=== PATIENT | male | born 1960 | race Caucasian/White ===

== ENCOUNTER 2020-09-02 16:19 | Emergency (ER) | payer OTHER, MEDICAID, SELFPAY ==
[2020-09-02 16:25] VITALS: BP 202/105; PULSE 89; RESP 18; O2SAT 98; BMI 30.4
[2020-09-02 16:32] VITALS: PULSE 89; RESP 22; O2SAT 99
--- NOTE | 2020-09-02 16:46 | DI.RAD.S_ITS ---
PROCEDURE: XR CHEST 1V INDICATIONS: rt chest pain TECHNIQUE: One view of the chest was acquired. COMPARISON: [facility], CR, XR CHEST 1 VIEW, 08/13/2020, 2:48. FINDINGS: Surgical changes and devices: None. Lungs and pleura: Lungs are clear. No pleural effusions or pneumothorax. Mediastinum: Mediastinal contours appear normal. Heart size is normal. Bones and chest wall: No suspicious bony lesions. No focal right rib abnormality can be seen. Overlying soft tissues appear unremarkable. IMPRESSION: Portable chest within normal limits. Dictated by: James Mccarthy M.D. on 09/02/2020 at 16:07 Approved by: James Mccarthy M.D. on 09/02/2020 at 16:07
--- NOTE | 2020-09-02 16:48 | ED.GENADULT ---
HPI - General Adult General Chief complaint: Extremity Injury, Upper Stated complaint: right arm sore, right chest pain Time Seen by Provider: 09/02/20 16:29 Source: patient Mode of arrival: Ambulatory Limitations: no limitations History of Present Illness HPI narrative: Patient here with ira. Complains a reproducible right arm and right chest and right scapular pain. Blood pressure noted. Has not seen a physician over 1 year. He no longer sees his primary care. Was being prescribed pain medication by primary care. No history of high blood pressure. Denies any injury. Patient states he has a very bad back/spine. Two thousand eight lumbar surgery in [place]. Since then has had problems with his back. Pain is very positional. Prefers to lay on his left side. To take the pressure off the pain on the right side. No syncope. No abdominal pain. No numbness tingling or weakness. No diaphoresis. Right pectoral chest pain worse with raising his right hand above his head and to the back. He has been doing that repetitive late to help stretch out his right scapular back pain He states he did in doing that in order to give relief to his right scapular muscle spasm/pain. No exertional chest pain or dyspnea. Related Data Previous Rx's Medication Instructions Recorded hydrocodone-acetaminophen 1 tab PO Q6H PRN #7 tab 09/02/20 ondansetron 4 mg PO Q8H PRN #10 tab 09/02/20 Allergies Allergy/AdvReac Type Severity Reaction Status Date / Time No Known Drug Allergies Allergy Verified 09/02/20 16:33 Review of Systems Review of Systems Narrative: GENERAL: Denies chills, fatigue, malaise, fever, sweats. HEENT: Denies sinus pain, ear pain, sore throat RESPIRATORY: Denies dyspnea, cough CARDIOVASCULAR: Complains chest pain, denies palpitations GASTROINTESTINAL: Denies nausea, vomiting, abdominal pain : Denies dysuria, frequency, hematuria MUSCULOSKELETAL: Complains muscle denies bony pain SKIN: Denies rash, skin lesions NEUROLOGIC: Denies weakness, numbness ROS Unobtainable: All systems reviewed & are unremarkable except as noted in HPI and below Patient History Social History Smoking Status: Current every day smoker Smoking Status: Current every day smoker tobacco type: cigarettes alcohol intake frequency: holidays/special occasions only Substance Use Type: does not use Exam Narrative Exam Narrative: GENERAL: in no distress, not toxic not dyspneic HEAD: Normocephalic. EYES: Pupils equal round No scleral icterus. No injection no discharge ENT: Mucous membranes moist. NECK: Trachea midline. CARDIOVASCULAR: Regular rate and rhythm without murmurs, reproducible right pectoral muscle pain/tenderness with elevating right arm and hand above his head and extending to his back with his hand RESPIRATORY: Clear to auscultation. Breath sounds equal bilaterally. No wheezes, rales, or rhonchi. GASTROINTESTINAL: Abdomen soft, non-tender EXTREMITIES: No gross deformities. Nontender right shoulder elbow and wrist. Strong senior product engineer. Light touch intact to right hand and fingers. BACK: Reproducible in for scapular and suprascapular muscle tenderness and spasm on the right side. NEURO: AOx4. SKIN: Warm and dry PSYCH: Not anxious, is cooperative Initial Vital Signs Initial Vital Signs: Vital Signs Pulse Rate 89 09/02/20 16:25 Respiratory Rate 18 09/02/20 16:25 Blood Pressure 202/105 H 09/02/20 16:25 Pulse Oximetry 98 09/02/20 16:25 Course Course Course Narrative: No new issues during course of stay. Orders Ordered: ED Orders 09/02/20 16:36 Complete Blood Count AUTO DIFF Stat Comprehensive Metabolic Panel Stat Troponin & CK Cardiac Panel Stat 09/02/20 16:46 XR chest 1V Stat EKG-12 Lead Stat Discontinued Medications Aspirin (Aspirin 81 Mg Chew Tab) 324 mg PO NOW ONE Stop: 09/02/20 16:47 Last Admin: 09/02/20 17:00 Dose: 324 mg Documented by: GURWINDER Morphine Sulfate (Morphine 4 Mg/Ml Inj) 4 mg IV NOW ONE Stop: 09/02/20 16:47 Last Admin: 09/02/20 17:00 Dose: 4 mg Documented by: GURWINDER Ondansetron HCl (Ondansetron 4 Mg/2 Ml Inj) 4 mg IV NOW ONE Stop: 09/02/20 16:47 Last Admin: 09/02/20 17:00 Dose: 4 mg Documented by: GURWINDER Reevaluation(s) Reevaluation #1: Patient states pain much better. Blood pressure is improved as well. Patient and fiancee desire discharge home. Primary care referral will be given to patient. Blood pressure 156/79. Patient states pain is gone. No dyspnea Time: 17:49 Vital Signs Vital signs: Vital Signs - 8 hr 09/02/20 16:25 09/02/20 16:32 09/02/20 17:00 Pulse Rate 89 89 85 Respiratory Rate 18 22 16 Blood Pressure 202/105 H 176/83 H Pulse Oximetry 98 99 96 09/02/20 17:30 Pulse Rate 83 Respiratory Rate 18 Blood Pressure 156/79 H Pulse Oximetry Medical Decision Making Differential Diagnosis Differential Diagnosis: Thoracic radiculopathy/right pectoral muscle strain Lab Data Lab results reviewed: Yes I reviewed the patient's lab results. Result diagrams: 09/02/20 16:36 09/02/20 16:36 Labs: Lab Results 09/02/20 09/02/20 Range/Units 16:36 16:36 WBC 7.6 (4.5-11.0) X10^3/uL RBC 4.80 (4.5-5.9) X10^6/uL Hgb 13.1 L (13.5-17.5) g/dL Hct 39.0 L (41-53) % MCV 81.3 (80-100) fL MCH 27.4 (26-34) PG MCHC 33.7 (30-36) % RDW 14.7 (11.6-14.8) % Plt Count 184 (150-400) X10^3/uL Neut % (Auto) 71.0 (50-75) % Lymph % (Auto) 18.5 L (25-40) % Mineral % (Auto) 8.1 (3-14) % Eos % (Auto) 1.8 L (2-4) % Baso % (Auto) 0.6 (0-2) % Neut # (Auto) 5400 (3026-5695) /uL Lymph # (Auto) 1400 (2618-6910) /uL Mineral # (Auto) 600 (0-900) /uL Eos # (Auto) 100 (0-450) /uL Baso # (Auto) 0 (0-100) /uL Sodium 135 L (137-145) mmol/L Potassium 5.0 (3.4-5.1) mmol/L Chloride 102 (98-107) mmol/L Carbon Dioxide 28 (22-32) mmol/L BUN 20 (9-20) mg/dL Creatinine 0.83 (0.66-1.25) mg/dL Estimated GFR > 60.0 (>60) mL/min BUN/Creatinine Ratio 24.1 H (6-22) Glucose 153 H (70-100) mg/dL Calcium 9.1 (8.4-10.2) mg/dL Total Bilirubin 0.6 (0.2-1.3) mg/dL AST 58 (17-59) IU/L ALT 34 (<50) IU/L Alkaline Phosphatase 90 (38-126) U/L Total Creatine Kinase 192 H (55-170) U/L CK-MB (CK-2) 4.10 H (<2.37) ng/mL CK-MB (CK-2) Rel Index 2.1 (1.5-5.0) % Troponin I < 0.012 (0.01-0.034) ng/mL Total Protein 8.3 H (6.3-8.2) g/dL Albumin 4.4 (3.5-5.0) g/dL Globulin 3.9 (1.7-4.1) g/dL Albumin/Globulin Ratio 1.1 (1.0-2.8) Imaging Data Chest x-ray: Radiologist's Impression: [address] [id number] ReportSigned Patient: Edson Brady RMR#: [id number]: 1960cct:[id number]/Sex: 60 / MDate of Service: 09/02/20Loc: EDAccession Number: [id number] Procedure: XR chest 1V Ordering Provider: Obed Vargas MD PROCEDURE: XR CHEST 1V INDICATIONS: rt chest pain TECHNIQUE: One view of the chest was acquired. COMPARISON: [facility], , XR CHEST 1 VIEW, 08/13/2020, 2:48. FINDINGS: Surgical changes and devices: None. Lungs and pleura: Lungs are clear. No pleural effusions or pneumothorax. Mediastinum: Mediastinal contours appear normal. Heart size is normal. Bones and chest wall: No suspicious bony lesions. No focal right rib abnormality can be seen. Overlying soft tissues appear unremarkable. IMPRESSION: Portable chest within normal limits. Dictated by: James Mccarthy M.D. on 09/02/2020 at 16:07 Approved by: James Mccarthy M.D. on 09/02/2020 at 16:07 ECG Data Attestation: I personally reviewed and interpreted this ECG as follows: Interpretation: Normal sinus rhythm rate [address] elevation or depression MDM Narrative Medical decision making narrative: Appropriate for discharge home. Has reproducible right arm/scapular and right pectoral muscle/chest pain. This is positional and on movement. No repeat imaging or enzymes indicated. Blood pressure did improve. Likely thoracic radiculopathy/pinched nerve on the right thoracic spine/vertebrae causing right scapular muscle spasm inducing patient to move his arm to for relief on the right side however stretching out his right pectoral muscle Discharge Plan Departure Patient Disposition: Home Clinical Impression: Spasm of thoracic back muscle Chest wall muscle strain Qualifiers: Encounter type: initial encounter Qualified Code(s): S29.011A - Strain of muscle and tendon of front wall of thorax, initial encounter Instructions: DI for Muscle Strain, DI for Muscle Spasm Activity Restrictions/Additional Instructions: No driving or operating machinery tonight. Call provided referral number/list to attain new primary care physician. Return if worse or for any questions or concerns. Be sure to have your blood pressure rechecked when you see your new doctor. Prescriptions: New hydrocodone-acetaminophen 5-325 mg tablet 1 tab PO Q6H PRN (Reason: pain) Qty: 7 RF: 0 ondansetron 4 mg tablet,disintegrating 4 mg PO Q8H PRN (Reason: nausea and vomiting) Qty: 10 RF: 0
[2020-09-02 17:00] VITALS: BP 176/83; PULSE 85; RESP 16; O2SAT 96
[2020-09-02 17:00] LABS: Add Manual Diff / Slide Review NO; Basophils Absolute Auto 0 /uL (0-100); Basophils Percent Auto 0.6 % (0-2); Eosinophils Absolute Auto 100 /uL (0-450); Eosinophils Percent Auto 1.8 % (2-4); Hemoglobin 13.1 g/dL (13.5-17.5); Lymphocytes Absolute Auto 1400 /uL (1100-4500); Lymphocytes Percent Auto 18.5 % (25-40); Mean Corpuscular HGB Conc 33.7 % (30-36); Mean Corpuscular Hemoglobin 27.4 PG (26-34); Mean Corpuscular Volume 81.3 fL (80-100); Monocytes Absolute Auto 600 /uL (0-900); Monocytes Percent Auto 8.1 % (3-14); Neutrophils Absolute Auto 5400 /uL (1500-7000); Platelet Count 184 X10^3/uL (150-400); Red Cell Distribution Width 14.7 % (11.6-14.8); White Blood Cell Count 7.6 X10^3/uL (4.5-11.0)
[2020-09-02] MEDS: MORPHINE 4 MG/ML INJ IV (17:00)
[2020-09-02] MEDS: ASPIRIN 81 MG CHEW TAB 324 MG PO (17:00)
[2020-09-02] MEDS: ONDANSETRON 4 MG/2 ML INJ IV (17:00)
[2020-09-02 17:04] LABS: Alanine Aminotransferase 34 IU/L (<50); Albumin 4.4 g/dL (3.5-5.0); Albumin Globulin Ratio 1.1 (1.0-2.8); Alkaline Phosphatase 90 U/L (38-126); Aspartate Aminotransferase 58 IU/L (17-59); BUN Creatinine Ratio 24.1 (6-22); Bilirubin Total 0.6 mg/dL (0.2-1.3); Blood Urea Nitrogen 20 mg/dL (9-20); Calcium 9.1 mg/dL (8.4-10.2); Carbon Dioxide 28 mmol/L (22-32); Chloride 102 mmol/L (98-107); Creatine Kinase 192 U/L (55-170); Estimated Glomerular Filt Rate > 60.0 mL/min (>60); Globulin 3.9 g/dL (1.7-4.1); Glucose 153 mg/dL (70-100); Sodium 135 mmol/L (137-145); Total Protein 8.3 g/dL (6.3-8.2)
[2020-09-02 17:09] LABS: HEMOLYSIS 125 (0-50)
[2020-09-02 17:16] LABS: Troponin I < 0.012 ng/mL (0.01-0.034)
[2020-09-02 17:19] LABS: CKMB % Relative Index 2.1 % (1.5-5.0)
[2020-09-02 17:30] VITALS: BP 156/79; PULSE 83; RESP 18
== END 2020-09-02 18:02 | disposition home or self-care (01) ==
PROVIDERS: Emergency Provider Emergency Medicine
DX: S29.011A Strain of muscle and tendon of front wall of thorax, initial encounter (principal); M62.830 Muscle spasm of back; M79.601 Pain in right arm
CPT/HCPCS: 36415; 71045; 80053; 82550; 82553; 84484; 85025; 93005; 96374; 96375; 99283; 99284; J2270; J2405

== ENCOUNTER 2020-09-10 02:11 | Emergency (ER) | payer OTHER, MEDICAID, SELFPAY ==
[2020-09-10 02:27] VITALS: BP 173/99; PULSE 86; RESP 22; TEMP 36.9; O2SAT 98; BMI 26.5
--- NOTE | 2020-09-10 02:36 | ED.EXTPRO ---
HPI - Extremity Problem General Chief complaint: Extremity Problem,Nontraumatic Stated complaint: right leg hot and swollen hurts really bad Time Seen by Provider: 09/10/20 02:24 Source: patient Mode of arrival: Wheelchair History of Present Illness HPI Narrative: The patient is a 60-year-old male who presents with right lower leg pain and swelling. He has a been there for the last 3 days he actually is noted to have some mild erythema on the medial side of his foot. He denies any injury he ate actually has bilateral lower extremity edema. Denies any chest pain orthopnea or shortness of breath with exertion. He says he is not her along his legs have actually been swollen he just noted more achiness. Mode was seen and evaluated here last week for right arm pain and right chest pain. At this time he is noted to be quite hypertensive which improved in the emergency department and he was discharged home Related Data Previous Rx's Medication Instructions Recorded hydrocodone-acetaminophen 1 tab PO Q6H PRN #7 tab 09/02/20 ondansetron 4 mg PO Q8H PRN #10 tab 09/02/20 cephalexin [Keflex] 500 mg PO TID #21 cap 09/10/20 furosemide [Lasix] 20 mg PO QAM #5 tab 09/10/20 Allergies Allergy/AdvReac Type Severity Reaction Status Date / Time No Known Drug Allergies Allergy Verified 09/02/20 16:33 Review of Systems Review of Systems ROS Unobtainable: All systems reviewed & are unremarkable except as noted in HPI and below Constitutional Constitutional: Denies chills, Denies fever(s), Denies lethargy and Denies weakness Eyes Eyes: Denies change in vision, Denies eye discharge, Denies irritation and Denies loss of vision ENT Ears, Nose, Mouth, and Throat: Denies abnormal hearing Cardiovascular Cardiovascular: Denies chest pain, Denies irregular heart rhythm, Denies lightheadedness, Denies palpitations, Denies dyspnea, Denies dyspnea on exertion and Denies orthopnea Respiratory Respiratory: Denies cough, Denies dyspnea, Denies dyspnea on exertion and Denies wheezing Gastrointestinal Gastrointestinal: Denies abdominal pain, Denies change in bowel habits, Denies diarrhea, Denies nausea and Denies vomiting Musculoskeletal Musculoskeletal: Reports as per HPI Integumentary/Breasts Skin/Breast: Reports rash Neurologic Neurologic: Denies abnormal hearing, Denies loss of vision and Denies weakness Endocrine Endocrine: Denies palpitations Allergic/Immunologic Allergic/Immunologic: Denies wheezing Patient History Social History Smoking Status: Current every day smoker Smoking Status: Current every day smoker tobacco type: cigarettes alcohol intake frequency: holidays/special occasions only Substance Use Type: does not use Exam Initial Vital Signs Initial Vital Signs: Vital Signs Temperature 98.5 F 09/10/20 02:27 Pulse Rate 86 09/10/20 02:27 Respiratory Rate 22 09/10/20 02:27 Blood Pressure 173/99 H 09/10/20 02:27 Pulse Oximetry 98 09/10/20 02:27 GENERAL: Alert 60-year-old male and in no acute distress. HEENT: Head atraumatic,EOMI, pupils reactive, face symmetric, moist mucous membranes CARDIOVASCULAR: Regular rate and rhythm without murmurs, rubs or gallops. RESPIRATORY: Breath sounds equal bilaterally, no wheezes rales or rhonchi. ABDOMEN: Soft, nontender. Normoactive bowel sounds all 4 quadrants. No guarding or rebound. EXTREMITIES: Normal range of motion, no clubbing or edema. Neurovascularly intact NEUROLOGICAL: Alert and oriented x4.Normal gait and speech. Cranial nerves II through XII grossly intact. SKIN: Mild lower extremity erythema bilaterally seems to be slightly worse on the right and especially right medial foot Course Orders Ordered: ED Orders 09/10/20 02:50 EKG-12 Lead Stat 09/10/20 03:20 Complete Blood Count AUTO DIFF Stat Comprehensive Metabolic Panel Stat Lipase Stat NT-proBNP (BNP-Adult 18+) Stat Procalcitonin Stat Troponin & CK Cardiac Panel Stat 09/10/20 03:55 D Dimer Stat 09/10/20 04:41 US periph venous low extrem bi Stat 09/10/20 04:55 Urine Drug Screen, Rapid Stat Discontinued Medications Cefazolin Sodium (Cephalexin 250 Mg Prepack) 1 bottle MISC SEEINSTR ONE Stop: 09/10/20 05:37 Last Admin: 09/10/20 05:51 Dose: 500 mg Documented by: Furosemide (Furosemide 40 Mg Tablet) 40 mg PO NOW ONE Stop: 09/10/20 05:37 Last Admin: 09/10/20 05:51 Dose: 40 mg Documented by: Vital Signs Vital signs: Vital Signs - 8 hr 09/10/20 02:27 09/10/20 03:00 09/10/20 03:30 Temperature 98.5 F Pulse Rate 86 84 82 Respiratory Rate 22 Blood Pressure 173/99 H Pulse Oximetry 98 97 94 09/10/20 04:00 09/10/20 04:30 09/10/20 04:49 Temperature Pulse Rate 65 73 81 Respiratory Rate Blood Pressure 147/80 H Pulse Oximetry 99 98 98 MDM - Extremity (Nontraumatic) Lab Data Result diagrams: 09/10/20 03:20 09/10/20 03:20 Labs: Lab Results 09/10/20 09/10/20 09/10/20 Range/Units 03:20 03:20 03:55 WBC 8.6 (4.5-11.0) X10^3/uL RBC 4.65 (4.5-5.9) X10^6/uL Hgb 12.6 L (13.5-17.5) g/dL Hct 37.6 L (41-53) % MCV 80.8 (80-100) fL MCH 27.1 (26-34) PG MCHC 33.5 (30-36) % RDW 14.4 (11.6-14.8) % Plt Count 168 (150-400) X10^3/uL Neut % (Auto) 73.6 (50-75) % Lymph % (Auto) 13.3 L (25-40) % Knott % (Auto) 11.2 (3-14) % Eos % (Auto) 1.5 L (2-4) % Baso % (Auto) 0.4 (0-2) % Neut # (Auto) 6300 (2038-4491) /uL Lymph # (Auto) 1100 (6441-7764) /uL Knott # (Auto) 1000 H (0-900) /uL Eos # (Auto) 100 (0-450) /uL Baso # (Auto) 0 (0-100) /uL D-Dimer 542 H (<230) ng/mL Sodium 135 L (137-145) mmol/L Potassium 4.3 (3.4-5.1) mmol/L Chloride 100 (98-107) mmol/L Carbon Dioxide 30 (22-32) mmol/L BUN 20 (9-20) mg/dL Creatinine 0.73 (0.66-1.25) mg/dL Estimated GFR > 60.0 (>60) mL/min BUN/Creatinine Ratio 27.4 H (6-22) Glucose 106 H (70-100) mg/dL Calcium 9.3 (8.4-10.2) mg/dL Total Bilirubin 0.6 (0.2-1.3) mg/dL AST 38 (17-59) IU/L ALT 32 (<50) IU/L Alkaline Phosphatase 109 (38-126) U/L Total Creatine Kinase 249 H (55-170) U/L CK-MB (CK-2) 4.36 H (<2.37) ng/mL CK-MB (CK-2) Rel Index 1.8 (1.5-5.0) % Troponin I < 0.012 (0.01-0.034) ng/mL NT-Pro-B Natriuret Pep 73 (<125) pg/mL Total Protein 8.1 (6.3-8.2) g/dL Albumin 4.2 (3.5-5.0) g/dL Globulin 3.9 (1.7-4.1) g/dL Albumin/Globulin Ratio 1.1 (1.0-2.8) Lipase 30 (23-300) U/L Procalcitonin 0.11 (<0.5) ng/mL U Opiates 300ng/mL cut (Negative) Ur Oxycodone Screen (Negative) Urine Methadone Screen (Negative) Ur Barbiturates Screen (Negative) U Tricyclic Antidepress (Negative) Ur Phencyclidine Scrn (Negative) Ur Amphetamines Screen (Negative) U Methamphetamines Scrn (Negative) Ur MDMA Scrn (Ecstasy) (Negative) U Benzodiazepines Scrn (Negative) Urine Cocaine Screen (Negative) U Marijuana (THC) Screen (Negative) 09/10/20 Range/Units 04:55 WBC (4.5-11.0) X10^3/uL RBC (4.5-5.9) X10^6/uL Hgb (13.5-17.5) g/dL Hct (41-53) % MCV (80-100) fL MCH (26-34) PG MCHC (30-36) % RDW (11.6-14.8) % Plt Count (150-400) X10^3/uL Neut % (Auto) (50-75) % Lymph % (Auto) (25-40) % Knott % (Auto) (3-14) % Eos % (Auto) (2-4) % Baso % (Auto) (0-2) % Neut # (Auto) (4683-3787) /uL Lymph # (Auto) (6849-0794) /uL Knott # (Auto) (0-900) /uL Eos # (Auto) (0-450) /uL Baso # (Auto) (0-100) /uL D-Dimer (<230) ng/mL Sodium (137-145) mmol/L Potassium (3.4-5.1) mmol/L Chloride (98-107) mmol/L Carbon Dioxide (22-32) mmol/L BUN (9-20) mg/dL Creatinine (0.66-1.25) mg/dL Estimated GFR (>60) mL/min BUN/Creatinine Ratio (6-22) Glucose (70-100) mg/dL Calcium (8.4-10.2) mg/dL Total Bilirubin (0.2-1.3) mg/dL AST (17-59) IU/L ALT (<50) IU/L Alkaline Phosphatase (38-126) U/L Total Creatine Kinase (55-170) U/L CK-MB (CK-2) (<2.37) ng/mL CK-MB (CK-2) Rel Index (1.5-5.0) % Troponin I (0.01-0.034) ng/mL NT-Pro-B Natriuret Pep (<125) pg/mL Total Protein (6.3-8.2) g/dL Albumin (3.5-5.0) g/dL Globulin (1.7-4.1) g/dL Albumin/Globulin Ratio (1.0-2.8) Lipase (23-300) U/L Procalcitonin (<0.5) ng/mL U Opiates 300ng/mL cut Positive H (Negative) Ur Oxycodone Screen Negative (Negative) Urine Methadone Screen Negative (Negative) Ur Barbiturates Screen Negative (Negative) U Tricyclic Antidepress Negative (Negative) Ur Phencyclidine Scrn Negative (Negative) Ur Amphetamines Screen Positive H (Negative) U Methamphetamines Scrn Positive H (Negative) Ur MDMA Scrn (Ecstasy) Negative (Negative) U Benzodiazepines Scrn Negative (Negative) Urine Cocaine Screen Negative (Negative) U Marijuana (THC) Screen Negative (Negative) Imaging Data US - DVT: Radiologist's Impression: No DVT within either lower extremity ECG Data Attestation EKG: I personally reviewed and interpreted this ECG as follows: Prior ECG tracings: available for review Interpretation: Normal sinus rhythm rate 79 p.r. interval 136 QRS 87 keep his febrile [address] changes similar to previous EKG MDM Narrative Medical decision making narrative: Patient has bilateral lower extremity edema with mild erythema. He denies any history of drug use however his UDS is positive for methamphetamine and opiates. BNP is negative but I do suspect possible diastolic heart failure. He is given 1 dose of Lasix and started on Keflex. He overall does not appear septic. He does have elevated D-dimer this found does not show any DVT. He does not have a PCP he is given a phone number to call to establish care. At this time will give him Lasix to help diuresis and Keflex for antibiotics for mild cellulitis. Discharge Plan Departure Patient Disposition: Home Clinical Impression: Cellulitis of leg, right Instructions: DI for Cellulitis -- Adult Activity Restrictions/Additional Instructions: *You have been diagnosed with cellulitis right *What to do: No blood clot is found to likely have slight infection of your legs. Stop using methamphetamine *Continue to take medications as directed Lasix 20 mg once daily for 5 days Keflex 500 mg 3 times a day for 7 days *Follow up with your primary care provider in 2-3 days *Return to ER if you should have increasing swelling, fever, shortness of breath, chest or any new, worsening or concerning symptoms Prescriptions: New furosemide [Lasix] 20 mg tablet 20 mg PO QAM Qty: 5 RF: 0 cephalexin [Keflex] 500 mg capsule 500 mg PO TID Qty: 21 RF: 0 No Action hydrocodone-acetaminophen 5-325 mg tablet 1 tab PO Q6H PRN (Reason: pain) Qty: 7 RF: 0 ondansetron 4 mg tablet,disintegrating 4 mg PO Q8H PRN (Reason: nausea and vomiting) Qty: 10 RF: 0 Referrals: [facility] [Outside]
[2020-09-10 03:00] VITALS: PULSE 84; O2SAT 97
[2020-09-10 03:30] VITALS: PULSE 82; O2SAT 94
[2020-09-10 03:35] LABS: Add Manual Diff / Slide Review NO; Basophils Absolute Auto 0 /uL (0-100); Basophils Percent Auto 0.4 % (0-2); Eosinophils Absolute Auto 100 /uL (0-450); Eosinophils Percent Auto 1.5 % (2-4); Hematocrit 37.6 % (41-53); Hemoglobin 12.6 g/dL (13.5-17.5); Lymphocytes Absolute Auto 1100 /uL (1100-4500); Lymphocytes Percent Auto 13.3 % (25-40); Mean Corpuscular HGB Conc 33.5 % (30-36); Mean Corpuscular Hemoglobin 27.1 PG (26-34); Mean Corpuscular Volume 80.8 fL (80-100); Monocytes Absolute Auto 1000 /uL (0-900); Monocytes Percent Auto 11.2 % (3-14); Neutrophils Absolute Auto 6300 /uL (1500-7000); Neutrophils Percent Auto 73.6 % (50-75); Platelet Count 168 X10^3/uL (150-400); Red Blood Cell Count 4.65 X10^6/uL (4.5-5.9); Red Cell Distribution Width 14.4 % (11.6-14.8); White Blood Cell Count 8.6 X10^3/uL (4.5-11.0)
[2020-09-10 03:44] LABS: Alanine Aminotransferase 32 IU/L (<50); Albumin 4.2 g/dL (3.5-5.0); Albumin Globulin Ratio 1.1 (1.0-2.8); Alkaline Phosphatase 109 U/L (38-126); Aspartate Aminotransferase 38 IU/L (17-59); BUN Creatinine Ratio 27.4 (6-22); Bilirubin Total 0.6 mg/dL (0.2-1.3); Blood Urea Nitrogen 20 mg/dL (9-20); Calcium 9.3 mg/dL (8.4-10.2); Carbon Dioxide 30 mmol/L (22-32); Chloride 100 mmol/L (98-107); Creatine Kinase 249 U/L (55-170); Estimated Glomerular Filt Rate > 60.0 mL/min (>60); Globulin 3.9 g/dL (1.7-4.1); Glucose 106 mg/dL (70-100); HEMOLYSIS < 15 (0-50); Lipase 30 U/L (23-300); Potassium 4.3 mmol/L (3.4-5.1); Sodium 135 mmol/L (137-145); Total Protein 8.1 g/dL (6.3-8.2)
[2020-09-10 03:56] LABS: NT-proBNP (BNP-Adult 18+) 73 pg/mL (<125); Troponin I < 0.012 ng/mL (0.01-0.034)
[2020-09-10 04:00] VITALS: PULSE 65; O2SAT 99
[2020-09-10 04:00] LABS: CKMB % Relative Index 1.8 % (1.5-5.0); Creatine Kinase MB 4.36 ng/mL (<2.37)
[2020-09-10 04:01] LABS: Procalcitonin 0.11 ng/mL (<0.5)
[2020-09-10 04:20] LABS: D Dimer 542 ng/mL (<230)
[2020-09-10 04:30] VITALS: PULSE 73; O2SAT 98
--- NOTE | 2020-09-10 04:41 | DI.US.S_ITS ---
PROCEDURE: US PERIPH VENOUS LOW EXTREM BI INDICATIONS: EDEMA TECHNIQUE: Real-time imaging, as well as color and pulse Doppler interrogation, were performed of the deep veins of both legs from the inguinal ligament to the popliteal fossa. COMPARISON: None. FINDINGS: Right: The common femoral, femoral and popliteal veins are normally compressible, and free of intraluminal thrombus. Color and pulse Doppler demonstrate normal phasic intravascular flow. There is normal augmentation response to distal compression maneuver. Left: The common femoral, femoral and popliteal veins are normally compressible, and free of intraluminal thrombus. Color and pulse Doppler demonstrate normal phasic intravascular flow. There is normal augmentation response to distal compression maneuver. IMPRESSION: No deep venous thrombosis. The above findings are concordant with preliminary report. Dictated by: Marylu Vasquez M.D. on 09/10/2020 at 8:58 Approved by: Marylu Vasquez M.D. on 09/10/2020 at 9:02
[2020-09-10 04:49] VITALS: BP 147/80; PULSE 81; O2SAT 98
--- NOTE | 2020-09-10 04:52 | PC.NURSE ---
Failed 2 attempt at iv starts
[2020-09-10 05:12] LABS: UR Morphine/Opiate cutoff 300 Positive (Negative); Ur Creatinine 20 (Normal); Ur Specific Gravity 1.025 (Normal); Urine Cocaine Negative (Negative); Urine Tetrahydrocannabinol Negative (Negative); Urine pH 5 (Normal)
[2020-09-10 05:13] LABS: Urine Amphetamines Positive (Negative); Urine Barbiturates Negative (Negative); Urine Benzodiazepines Negative (Negative); Urine MDMA Negative (Negative); Urine Methadone Negative (Negative); Urine Methamphetamines Positive (Negative); Urine Oxycodone Negative (Negative); Urine Phencyclidine Negative (Negative); Urine Tricyclic Antidepressant Negative (Negative)
[2020-09-10] MEDS: cephALEXin 250 MG PREPACK 1 BOTTLE MISC (05:51)
[2020-09-10] MEDS: FUROSEMIDE 40 MG TABLET PO (05:51)
== END 2020-09-10 06:00 | disposition home or self-care (01) ==
PROVIDERS: Emergency Provider Emergency Medicine
DX: L03.115 Cellulitis of right lower limb (principal); I10 Essential (primary) hypertension
CPT/HCPCS: 36415; 80053; 80305; 82550; 82553; 83690; 83880; 84145; 84484; 85025; 85379; 93005; 93970; 99283; 99284

== ENCOUNTER 2023-08-25 11:53 | Emergency (ER) | payer OTHER, MEDICAID, SELFPAY ==
[2023-08-25 12:43] VITALS: BP 155/88; PULSE 68; RESP 20; TEMP 36.6; O2SAT 97; BMI 35.2
--- NOTE | 2023-08-25 13:45 | ED.WOUNDLAC ---
HPI - Wound/Laceration <Sarah Verma PA-C - Last Filed: 08/25/23 14:26> General Chief Complaint: Wound/Laceration Stated Complaint: hand and arm swelling Time Seen by Provider: 08/25/23 13:00 Source: patient Mode of arrival: Ambulatory History of Present Illness HPI narrative: 63-year-old male on methadone for opioid dependence presents to the ED with 2 days of left forearm wound. Patient states that he had a pimple on the forearm that he popped, following which the wound became more swollen and painful. Goes to the methadone clinic at [facility] daily, just got his methadone dose prior to arrival here. Patient denies fever, chills, nausea, vomiting. Patient denies drug use. Related Data Previous Rx's Medication Instructions Recorded hydrocodone 5 mg-acetaminophen 325 1 tab PO Q6H PRN pain #7 tabs 09/02/20 mg tablet ondansetron 4 mg disintegrating 4 mg PO Q8H PRN nausea and 09/02/20 tablet vomiting #10 tabs cephalexin 500 mg capsule (Keflex) 500 mg PO TID #21 caps 09/10/20 furosemide 20 mg tablet (Lasix) 20 mg PO QAM #5 tabs 09/10/20 doxycycline hyclate 100 mg capsule 100 mg PO BID 10 days #20 caps 08/25/23 Allergies Allergy/AdvReac Type Severity Reaction Status Date / Time No Known Drug Allergies Allergy Verified 08/25/23 12:47 Review of Systems <Sarah Verma PA-C - Last Filed: 08/25/23 14:26> Constitutional Constitutional: Denies chills, Denies fatigue, Denies fever(s), Denies frequent falls, Denies lethargy and Denies weakness Eyes Eyes: Denies change in vision, Denies eye discharge, Denies irritation and Denies loss of vision ENT Ears, Nose, Mouth, and Throat: Denies change in voice, Denies dizziness, Denies neck pain, Denies sore throat and Denies throat swelling Cardiovascular Cardiovascular: Denies chest pain, Denies irregular heart rhythm, Denies lightheadedness, Denies palpitations, Denies dyspnea, Denies dyspnea on exertion and Denies orthopnea Respiratory Respiratory: Denies cough, Denies dyspnea, Denies dyspnea on exertion and Denies wheezing Gastrointestinal Gastrointestinal: Denies abdominal pain, Denies change in bowel habits, Denies diarrhea, Denies nausea and Denies vomiting Musculoskeletal Musculoskeletal: Denies neck pain and Denies numbness Integumentary/Breasts Skin/Breast: Denies pruritus, Denies erythema, Denies rash and Reports wounds Neurologic Neurologic: Denies behavioral changes, Denies confusion, Denies dizziness, Denies frequent falls, Denies loss of vision, Denies numbness and Denies weakness Psychiatric Psychiatric: Denies anxiety, Denies behavioral changes, Denies confusion, Denies depression, Denies homicidal ideation and Denies suicidal ideation Endocrine Endocrine: Denies fatigue, Denies flushing and Denies palpitations Hematologic/Lymphatic Hematologic/Lymphatic: Denies easy bruising Allergic/Immunologic Allergic/Immunologic: Denies urticaria, Denies throat swelling and Denies wheezing Patient History <Sarah Verma PA-C - Last Filed: 08/25/23 14:26> Social History Smoking Status: Current every day smoker Smoking Status: Current every day smoker tobacco type: cigarettes alcohol intake frequency: holidays/special occasions only Substance Use Type: does not use Exam <Sarah Verma PA-C - Last Filed: 08/25/23 14:26> Narrative Exam Narrative: Const General:?cooperative, healthy appearing and comfortable [facility] Head:?normal to inspection Ears:?hearing grossly normal bilaterally Nose:?external nose normal Face and sinus:?normal facial exam and sinuses nontender Mouth:?oral mucosae normal Throat:?posterior oropharynx normal Eyes General:?appearance normal, both eyes and all related structures Neck Neck:?normal visual inspection and no lymphadenopathy noted Resp Effort & Inspection:?normal respiratory effort Auscultation:?clear to auscultation bilaterally Cardio Rate:?regular rate Rhythm:?regular rhythm Integumentary There is an abscess on the left forearm with induration and some joints. There is overlying erythema. Some purulent discharge. Tender to palpation Neuro General:?patient alert, patient awake and patient oriented x3 Initial Vital Signs Initial Vital Signs: Vital Signs Temperature 98 F 08/25/23 12:43 Pulse Rate 68 08/25/23 12:43 Respiratory Rate 20 08/25/23 12:43 Blood Pressure 155/88 H 08/25/23 12:43 Pulse Oximetry 97 08/25/23 12:43 Oxygen Delivery Method Room Air 08/25/23 12:43 <Souleymane Bustamante MD - Last Filed: 08/25/23 19:30> Initial Vital Signs Initial Vital Signs: Vital Signs Temperature 98 F 08/25/23 12:43 Pulse Rate 68 08/25/23 12:43 Respiratory Rate 20 08/25/23 12:43 Blood Pressure 155/88 H 08/25/23 12:43 Pulse Oximetry 97 08/25/23 12:43 Oxygen Delivery Method Room Air 08/25/23 12:43 Procedures <Sarah Verma PA-C - Last Filed: 08/25/23 14:26> Abscess I/D I&D #1: Site: upper extremity Side (if applicable): left Local Anesthetic: lidocaine 2% Amount of anesthesia used (mL): 5 Technique: incised with #11 blade Irrigation: No Packing used?: none Course <Sarah Verma PA-C - Last Filed: 08/25/23 14:26> Orders Ordered: ED Orders 08/25/23 14:03 Wound Culture and Gram Stain Stat Discontinued Medications Lidocaine HCl (Lidocaine 2% Inj Mdv 20ml) 20 ml INJ INTRA-OP ONE Stop: 08/25/23 13:51 Last Admin: 08/25/23 13:55 Dose: 20 ml Documented By: RYAN Vital Signs Vital signs: Vital Signs - 8 hr 08/25/23 12:43 Temperature 98 F Pulse Rate 68 Respiratory Rate 20 Blood Pressure 155/88 H Pulse Oximetry 97 Oxygen Delivery Method Room Air <Souleymane Bustamante MD - Last Filed: 08/25/23 19:30> Orders Ordered: ED Orders 08/25/23 14:03 Wound Culture and Gram Stain Stat Discontinued Medications Lidocaine HCl (Lidocaine 2% Inj Mdv 20ml) 20 ml INJ INTRA-OP ONE Stop: 08/25/23 13:51 Last Admin: 08/25/23 13:55 Dose: 20 ml Documented By: RYAN Vital Signs Vital signs: Vital Signs - 8 hr 08/25/23 12:43 Temperature 98 F Pulse Rate 68 Respiratory Rate 20 Blood Pressure 155/88 H Pulse Oximetry 97 Oxygen Delivery Method Room Air MDM - Wound/Laceration <TANNER Whittaker Last Filed: 08/25/23 14:26> MDM Narrative Medical decision making narrative: 63-year-old male on methadone for opioid dependence presents to the ED with 2 days of left forearm wound. Concern for abscess versus cellulitis versus other. Abscess was drained with incision and drainage, sample obtained for culture. Prescribed antibiotics, given the overlying erythema. Recommend follow-up with PCP. ED return precautions discussed with patient. Patient verbalized understanding. Medical records reviewed: Yes Discharge Plan Departure Patient Disposition: Home Clinical Impression: Abscess Instructions: DI for Skin Abscess Activity Restrictions/Additional Instructions: You were evaluated in the ED today for an abscess of the left forearm. The abscess was incised and drained, we have sent a sample to culture as well. You are being started on antibiotics. Please take the antibiotics as prescribed. Return to the ED if your symptoms worsen, you have fevers, chills, persistent vomiting. Please follow-up with your PCP as soon as possible. Prescriptions: New doxycycline hyclate 100 mg capsule 100 mg PO BID 10 Days Qty: 20 0RF No Action furosemide [Lasix] 20 mg tablet 20 mg PO QAM Qty: 5 0RF cephalexin [Keflex] 500 mg capsule 500 mg PO TID Qty: 21 0RF hydrocodone-acetaminophen 5-325 mg tablet 1 tab PO Q6H PRN (Reason: pain) Qty: 7 0RF ondansetron 4 mg tablet,disintegrating 4 mg PO Q8H PRN (Reason: nausea and vomiting) Qty: 10 0RF Referrals: Miscellaneous,Doctor, [Primary Care Provider] - Stand Alone Forms: Patient Portal/API ED Sign-out <Souleymane Bustamante MD - Last Filed: 08/25/23 19:30> Cosign ED Attending Venkata Attestation: I was immediately available in the department for consultation. Documentation has been reviewed. I agree with assessment and plan.
[2023-08-25] MEDS: LIDOCAINE 2% INJ MDV 20ML 20 ML INJ (13:55)
== END 2023-08-25 14:33 | disposition home or self-care (01) ==
PROVIDERS: Emergency Provider Student in an Organized Health Care Education/Training Program
DX: L02.414 Cutaneous abscess of left upper limb (principal)
CPT/HCPCS: 10060; 87070; 87077; 87147; 87186; 87205; 99283

== ENCOUNTER 2023-12-05 23:23 | Emergency (ER) | payer OTHER, MEDICAID, SELFPAY ==
[2023-12-05 23:40] VITALS: BP 199/106; PULSE 82; RESP 20; TEMP 36.4; O2SAT 97; BMI 36.5
--- NOTE | 2023-12-05 23:49 | PC.NURSE ---
repeat blood work drawn and sent
--- NOTE | 2023-12-06 00:25 | PC.NURSE ---
Pt states that he hit the corner of a wooden object in bathroom. It caused a corner puncture top edge is 6 cm bottom edge 5 cm in length. Pt had dressing on prior to arrival that was soaked through in triage, reinforced with Coban. Undressed and irrigated with Sterile water. Wound is bleeding scant at this time and will leave open to air until provider is able to assess.
--- NOTE | 2023-12-06 01:17 | ED_ITS ---
HPI - Wound/Laceration General Chief Complaint: Wound/Laceration Stated Complaint: right leg laceration Time Seen by Provider: 12/06/23 01:17 Source: patient Mode of arrival: Family Vehicle Limitations: no limitations History of Present Illness HPI narrative: 63-year-old male with history of chronic back pain, patient states he had gone to the bathroom and turned and there was table that he was unexpectedly present and he hit his leg on it causing laceration. He said it did bleed initially. Patient states it is painful. No new numbness tingling or weakness. Patient denies any other injuries. He states his tetanus is up-to-date as of the last couple years. Patient does have some swelling in his legs bilaterally he states that is always there it has not any worse than normal. He denies any other inju edna or symptoms. He states he takes medication for his back. He states he does not have any other medical issues reported such as hypertension, dyslipidemia, diabetes cardiac issues. No known drug allergies. Does use tobacco daily, occasionally uses alcohol, no recreational drugs. Patient does not currently have a primary care physician. Related Data Previous Rx's Medication Instructions Recorded hydrocodone 5 mg-acetaminophen 325 1 tab PO Q6H PRN pain #7 tabs 09/02/20 mg tablet ondansetron 4 mg disintegrating 4 mg PO Q8H PRN nausea and 09/02/20 tablet vomiting #10 tabs cephalexin 500 mg capsule (Keflex) 500 mg PO TID #21 caps 09/10/20 furosemide 20 mg tablet (Lasix) 20 mg PO QAM #5 tabs 09/10/20 Allergies Allergy/AdvReac Type Severity Reaction Status Date / Time No Known Drug Allergies Allergy Verified 08/25/23 12:47 Review of Systems Review of Systems ROS Unobtainable: All systems reviewed & are unremarkable except as noted in HPI and below Patient History Social History Smoking Status: Current every day smoker Smoking Status: Current every day smoker tobacco type: cigarettes alcohol intake frequency: holidays/special occasions only Substance Use Type: does not use Exam Narrative Exam Narrative: GENERAL: Alert and oriented x three, obese male in mild distress. HEENT: Head normocephalic, atraumatic, EOMI, pupils reactive, face symmetric, moist mucous membranes NECK: Supple, full range of motion CARDIOVASCULAR: Regular rate and rhythm without murmurs, rubs or gallops. RESPIRATORY: Breath sounds equal bilaterally, no wheezes rales or rhonchi. ABDOMEN: Soft, nontender. Normoactive bowel sounds all 4 quadrants. No guarding or rebound, rigidity, no mass : No CVA tenderness EXTREMITIES: Normal range of motion, no clubbing. Patient has a bilateral lower extremity edema. He is some chronic venous stasis changes with increased hypopi gmentation of anterior shins bilaterally. Patient's right lower extremity has a 6 x 7 cm laceration that has a 60 degree angle. Subcutaneous as exposed, no tendon involvement appears. No active bleeding but some mild use with palpation. Patient has a little bit of purple discoloration along the posterior edge of the laceration. Neurovascularly intact bilateral lower extremities. NEUROLOGICAL: Cranial nerves II through XII grossly intact. Moving all extremities SKIN: Warm, dry, no petechiae, no rashes or lesions. Initial Vital Signs Initial Vital Signs: Vital Signs Temperature 97.6 F 12/05/23 23:40 Pulse Rate 82 12/05/23 23:40 Respiratory Rate 20 12/05/23 23:40 Blood Pressure 199/106 H 12/05/23 23:40 Pulse Oximetry 97 12/05/23 23:40 Oxygen Delivery Method Room Air 12/05/23 23:40 Procedures Laceration Repair Laceration 1: Site: lower extremity (lower) Side (If applicable): right Size (cm): 13 Description: flap (angled 60 degree) and irregular Depth: simple, single layer (muscle exposed but intact.) Local Anesthetic: lidocaine 2% Amount of anesthesia used (mL): 10 Pre-repair: wound explored, irrigated extensively and deep structures intact Skin layer closed with: nylon Skin layer suture size: 4-0 Number of sutures: 17 Technique: simple, interrupted Course Orders Ordered: ED Orders 12/06/23 03:12 XR tibia fibula RT 2V Stat Discontinued Medications Hydrocodone Bitart/Acetaminophen (Hydrocodone/Acet 5/325 Tablet) 2 tab PO NOW ONE Stop: 12/06/23 03:13 Last Admin: 12/06/23 03:37 Dose: 2 tab Documented By: Bacitracin (Bacitracin Oint 0.9 Gm Pckt) 1 applic TOP NOW ONE Stop: 12/06/23 05:02 Last Admin: 12/06/23 05:17 Dose: 1 applic Documented By: Lidocaine HCl (Lidocaine 2% Inj Sdv 5ml) 10 ml INJ NOW ONE Stop: 12/06/23 03:13 Last Admin: 12/06/23 03:37 Dose: 10 ml Documented By: Vital Signs Vital signs: Vital Signs - 8 hr 12/05/23 23:40 12/06/23 05:22 Temperature 97.6 F Pulse Rate 82 80 Respiratory Rate 20 18 Blood Pressure 199/106 H 151/75 H Pulse Oximetry 97 97 Oxygen Delivery Method Room Air Room Air MDM - Wound/Laceration Imaging Data Extremity x-ray #1: My Impression: no foreign body, no fx. MDM Narrative Medical decision making narrative: 63-year-old male with laceration to his right lower extremity it is quite deep. Muscle appears intact but isn't slightly exposed, fascial layer appears intact overlying. Patient had x-ray which did not show any foreign body on prelim r ead. Was repaired with 17 sutures, patient is neurovascularly intact. He is little bit higher risk for wound dehiscence he does have bilateral lower extremity edema and chronic venous stasis changes although he states he has not had issues with infections in his skin in the past. Patient states he thinks tetanus is up-to-date. Discharge Plan Departure Patient Disposition: Home Clinical Impression: Laceration of right lower extremity Instructions: DI for Laceration Repair Activity Restrictions/Additional Instructions: Wound Care: Keep wound(s) clean and dry. Wash daily with soap and water only. Do not use over the counter products (alcohol or peroxide)on the wounds unless instructed by a physician. You can use triple antibiotic ointment such as Neosporin to the affected area. If wound condition worsens (increased/expanding redness, developing fluid blisters, or worsening pain), either contact your doctor for an urgent re- assessment , or return to the Emergency Department. Return to the ED, urgent care, or vist a primary care doctor for removal or suture in 7-10 days. Please call to set up an appointment. Return if fever greater than 100.4 Fahrenheit, increased swelling, increasing pain or worsening symptoms such as increased discharge or spreading redness, runny new or worsening symptoms. Prescriptions: No Action furosemide [Lasix] 20 mg tablet 20 mg PO QAM Qty: 5 0RF cephalexin [Keflex] 500 mg capsule 500 mg PO TID Qty: 21 0RF hydrocodone-acetaminophen 5-325 mg tablet 1 tab PO Q6H PRN (Reason: pain) Qty: 7 0RF ondansetron 4 mg tablet,disintegrating 4 mg PO Q8H PRN (Reason: nausea and vomiting) Qty: 10 0RF Referrals: Miscellaneous,Doctor, MD [Primary Care Provider] - Stand Alone Forms: Patient Portal/API
--- NOTE | 2023-12-06 03:12 | DI.RAD.S_ITS ---
PROCEDURE: XR TIBIA FUBULA RT 2V INDICATIONS: large lac to leg TECHNIQUE: 2 views of the tibia and fibula were acquired. COMPARISON: [facility], CT, CT LOWER EXTREMITY LEFT WITH CONTRAST, 09/28/2021, 22:42. FINDINGS: Bones: No fractures or dislocations. No suspicious bony lesions. Posterior calcaneal enthesophyte. Soft tissues: No suspicious soft tissue calcifications or masses. Soft tissue laceration at the lateral aspect of the distal right lower extremity. No radiopaque foreign body. IMPRESSION: Skin laceration. No radiopaque foreign body. No fracture. This report is concordant with the overnight preliminary interpretation. Dictated by: Domenico River M.D. on 12/06/2023 at 7:54 Approved by: Domenico River M.D. on 12/06/2023 at 7:56
[2023-12-06] MEDS: HYDROCODONE/ACET 5/325 TABLET 2 TAB PO (03:37)
[2023-12-06] MEDS: LIDOCAINE 2% INJ SDV 5ML 10 ML INJ (03:37)
[2023-12-06] MEDS: BACITRACIN OINT 0.9 GM PCKT 1 APPLIC TOP (05:17)
[2023-12-06 05:22] VITALS: BP 151/75; PULSE 80; RESP 18; O2SAT 97
== END 2023-12-06 05:23 | disposition home or self-care (01) ==
PROVIDERS: Emergency Provider Emergency Medicine
DX: S81.811A Laceration without foreign body, right lower leg, initial encounter (principal); W22.8XXA Striking against or struck by other objects, initial encounter
CPT/HCPCS: 12005; 73590; 99283

== ENCOUNTER → 2024-01-25 13:10 | Outpatient (CLI) | payer OTHER, MEDICAID, SELFPAY | PROVIDERS: Visit Provider Surgery | DX: S81.801A Unspecified open wound, right lower leg, initial encounter (principal); S81.802A Unspecified open wound, left lower leg, initial encounter; L98.8 Other specified disorders of the skin and subcutaneous tissue; I87.2 Venous insufficiency (chronic) (peripheral); R60.0 Localized edema; F17.210 Nicotine dependence, cigarettes, uncomplicated; F15.10 Other stimulant abuse, uncomplicated | CPT/HCPCS: 11042; 87070; 87075; 87077; 87147; 87186; 87205; 99203; 99214 ==